=== PATIENT | female | born 1975 | race Caucasian/White ===

== ENCOUNTER 2018-02-07 16:29 | Emergency (ER) | payer OTHER ==
[2018-02-07 16:42] VITALS: BP 144/92; PULSE 85; TEMP 98; BMI 28.5
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
== END 2018-02-07 17:17 | disposition home or self-care (01) ==
LOC: JERFT 16:29
DX: S29.012A Strain of muscle and tendon of back wall of thorax, initial encounter (principal); V59.59XA Passenger in pick-up truck or van injured in collision with other motor vehicles in traffic accident, initial encounter; Y92.414 Local residential or business street as the place of occurrence of the external cause; Y93.89 Activity, other specified; Y99.8 Other external cause status; I10 Essential (primary) hypertension
CPT/HCPCS: 99281-25

== ENCOUNTER 2020-08-09 22:31 | Emergency (ER) | payer OTHER ==
[2020-08-09 22:46] VITALS: BP 164/100; PULSE 76; TEMP 97.8; BMI 28.5
== END 2020-08-10 00:17 | disposition home or self-care (01) ==
LOC: JER 22:31
DX: R07.82 Intercostal pain (principal)
CPT/HCPCS: 71046-TC-FY; 99283-25